=== PATIENT | male | born 1960 | race Caucasian/White ===

== ENCOUNTER 2017-05-07 20:47 | Emergency (ER) | payer OTHER ==
[~2017-05-07] VITALS: Ht 193 cm; Wt 90.9 kg
[2017-05-07] MEDS ORDERED: ATEN25TA PO (20:53)
[2017-05-07] MEDS: IBUPROFEN 800 MG TABLET PO ONE ×2 (21:19→21:37)
[2017-05-07] MEDS ORDERED: ACETAMINOPHEN 500 MG TABLET PO ONE (22:15)
[2017-05-07 22:29] VITALS: BP 136/84
== END 2017-05-07 22:39 | disposition home or self-care (01) ==
LOC: EMS 20:49
DX: S60.222A Contusion of left hand, initial encounter (principal); S80.02XA Contusion of left knee, initial encounter; F17.210 Nicotine dependence, cigarettes, uncomplicated; Z88.1 Allergy status to other antibiotic agents; Z88.5 Allergy status to narcotic agent; Z88.2 Allergy status to sulfonamides; Y04.2XXA Assault by strike against or bumped into by another person, initial encounter; Y93.89 Activity, other specified; Y92.89 Other specified places as the place of occurrence of the external cause; Y99.8 Other external cause status
CPT/HCPCS: 99284